=== PATIENT | male | born 1995 | race Caucasian/White ===

== ENCOUNTER 2017-04-21 19:52 | Emergency (ER) | payer SELFPAY ==
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
[2017-04-21] MEDS ORDERED: Ibuprofen 600 MG Tab PO ONE (21:02)
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
== END 2017-04-21 21:10 | disposition home or self-care (01) ==
LOC: FB.ED 19:52
DX: S06.0X0A Concussion without loss of consciousness, initial encounter (principal); S43.402A Unspecified sprain of left shoulder joint, initial encounter; V86.92XA Unspecified occupant of snowmobile injured in nontraffic accident, initial encounter
CPT/HCPCS: 70450; 73030; 99284; A9270

== ENCOUNTER 2020-02-12 13:11 | Emergency (ER) | payer OTHER ==
--- NOTE | 2020-02-12 13:26 | EDM.PDOC ---
ED HPI GENERAL MEDICAL PROBLEM - General Chief Complaint: Lower Extremity Injury/Pain Stated Complaint: ANKLE INJURY Time Seen by Provider: 02/12/20 13:20 Source of Information: Reports: Patient History Limitations: Reports: No Limitations - History of Present Illness INITIAL COMMENTS - FREE TEXT/NARRATIVE: c/o ankle pain - Related Data Allergies Allergy/AdvReac Type Severity Reaction Status Date / Time No Known Allergies Allergy Verified 02/12/20 13:40 Home Meds: Home Meds NK [No Known Home Meds] 04/21/17 [History] Past Medical History - Past Health History Medical/Surgical History: Denies Medical/Surgical History Social & Family History - Family History Family Medical History: No Pertinent Family History - Caffeine Use Caffeine Use: Reports: Soda Review of Systems - Review of Systems Review Of Systems: See Below Constitutional: Reports: No Symptoms Eyes: Reports: No Symptoms Ears: Reports: No Symptoms Nose: Reports: No Symptoms Mouth/Throat: Reports: No Symptoms Respiratory: Reports: No Symptoms Cardiovascular: Reports: No Symptoms GI/Abdominal: Reports: No Symptoms Genitourinary: Reports: No Symptoms Musculoskeletal: Reports: Joint Pain Skin: Reports: No Symptoms Neurological: Reports: No Symptoms Psychiatric: Reports: No Symptoms ED EXAM, GENERAL - Physical Exam Exam: See Below Exam Limited By: No Limitations General Appearance: Alert, WD/WN, No Apparent Distress Nose: Normal Inspection Head: Atraumatic, Normocephalic Neck: Normal Inspection, Supple, Non-Tender, Full Range of Motion Respiratory/Chest: No Respiratory Distress, Lungs Clear Cardiovascular: Regular Rate, Rhythm GI/Abdominal: Soft Neurological: Alert, Oriented, CN II-XII Intact, Normal Cognition, Normal Gait, No Motor/Sensory Deficits Psychiatric: Normal Affect, Normal Mood Skin Exam: Warm, Dry, Intact, Normal Color, No Rash Lymphatic: No Adenopathy Course - Vital Signs Last Recorded V/S: Last Vital Signs Temp 36.8 C 02/12/20 14:32 Pulse 73 02/12/20 14:32 Resp 16 02/12/20 14:32 BP 135/71 02/12/20 14:32 Pulse Ox 99 02/12/20 14:32 - Orders/Labs/Meds Orders: Active Orders 24 hr Category Date Time Status ALAN Bandage [Elastic Wrap] [OM.PC] Routine Oth 02/12/20 13:49 Ordered Departure - Departure Time of Disposition: 14:40 Disposition: Home, Self-Care 01 Clinical Impression: Right ankle sprain - Discharge Information Instructions: Ankle Sprain, How to Use a Stirrup Ankle Brace Referrals: PCP,None [Primary Care Provider] - Forms: ED Department Discharge Additional Instructions: Limit weight bearing for 2 days. Use Air Stirrup when on your feet for the next 4-6 weeks. Use ice for 10 minutes 4 times today and tomorrow. For inflammation and swelling and pain, take ibuprofen 200 mg 4 tabs 3 times a day for 7 days. Use Alan wrap (under Air Stirrup) for the next 2-3 days. See your doctor in 6 days for further recommendations. - My Orders Last 24 Hours: My Active Orders 02/12/20 13:49 ALAN Bandage [Elastic Wrap] [OM.PC] Routine - Assessment/Plan Last 24 Hours: My Active Orders 02/12/20 13:49 ALAN Bandage [Elastic Wrap] [OM.PC] Routine
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
== END 2020-02-12 14:40 | disposition home or self-care (01) ==
LOC: FB.ED 13:11
DX: S93.401A Sprain of unspecified ligament of right ankle, initial encounter (principal); X50.9XXA Other and unspecified overexertion or strenuous movements or postures, initial encounter
CPT/HCPCS: 73610-RT; 99283